=== PATIENT | male | born 2000 | race Caucasian/White ===

== ENCOUNTER 2020-04-30 14:31 | Inpatient (IN) | payer BC, OTHER ==
[2020-04-30] MEDS ORDERED: DIPH,PERTUS(ACELL)TETVAC-LF 0.5 ML VIAL IM ONE (14:42)
[2020-04-30 15:04] LABS: Basophils # (A) 0.1 k/uL (0-0.2); Basophils % (A) 1 %; Eosinophils # (A) 0.1 k/uL (0-0.7); Eosinophils % (A) 1 %; HCT 43.5 % (39.0-53.0); HGB 15.3 gm/dL (13.0-17.5); Lymphocytes # (A) 1.8 k/uL (1.0-4.8); Lymphocytes % (A) 24 %; MCH 31.1 pg (25.0-35.0); MCHC 35.2 g/dL (31.0-37.0); MCV 88.4 fL (80.0-100.0); Mean Platelet Volume 7.9; Monocytes # (A) 0.4 k/uL (0-1.0); Monocytes % (A) 6 %; Neutrophils % (A) 67 %; Platelet Count 194 k/uL (150-450); RBC 4.92 m/uL (4.30-5.90); RDW 12.3 % (11.5-15.5); WBC 7.5 k/uL (4.0-11.0)
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
[2020-04-30 15:18] LABS: ALT 45 U/L (4-49); AST 55 U/L (17-59); African American GFR (CKD) >90 (>60 ml/min/1.73 sqM); Albumin 4.3 g/dL (3.5-5.0); Alcohol <10 mg/dL; Alkaline Phosphatase 78 U/L (38-126); Anion Gap 4 mmol/L; Blood Urea Nitrogen 12 mg/dL (9-20); Calcium 9.3 mg/dL (8.4-10.2); Carbon Dioxide 27 mmol/L (22-30); Chloride 107 mmol/L (98-107); Glucose 116 mg/dL (74-99); Non-African American GFR(CKD) >90 (>60 ml/min/1.73 sqM); Potassium 3.7 mmol/L (3.5-5.1); Sodium 138 mmol/L (137-145); Total Bilirubin 0.8 mg/dL (0.2-1.3); Total Protein 6.9 g/dL (6.3-8.2)
[2020-04-30 15:24] LABS: INR 1.1 (<1.2); Partial Thromboplastin Time 21.6 sec (22.0-30.0); Prothrombin Time 11.6 sec (9.0-12.0)
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
[2020-04-30] MEDS ORDERED: ACETAMINOPHEN TAB 500 MG TAB PO STA (16:38)
[2020-04-30] MEDS ORDERED: ONDANSETRON 4 MG/2 ML VIAL IVP STA (17:24)
[2020-04-30] MEDS ORDERED: LIDOCAINE 1% INJ 10MG/ML (20 ML MDV) SQ ONE (17:45)
[2020-04-30] MEDS ORDERED: SODIUM CHLORIDE 0.9% 1,000 ML IV ONE (17:53)
[2020-04-30] MEDS ORDERED: ONDANSETRON 4 MG/2 ML VIAL IVP PRN (17:54)
[2020-04-30 18:03] LABS: Appearance,Urine Clear (Clear); Bilirubin,Urine Negative (Negative); Blood,Urine Moderate (Negative); Color,Urine Yellow; Glucose,Urine (UA) Negative (Negative); Ketones,Urine Negative (Negative); Leukocyte Esterase,Urine Negative (Negative); Mucus,Urine Rare /hpf; Nitrite,Urine Negative (Negative); Protein,Urine 1+ (Negative); RBC,Urine 57 /hpf (0-5); Squamous Epithelial Cell,Urine <1 /hpf (0-4); Urobilinogen,Urine <2.0 mg/dL (<2.0); WBC,Urine 3 /hpf (0-5)
[2020-04-30 18:07] LABS: Amphetamine Screen,Urine Not Detected (NotDetected); Barbiturate Screen,Urine Not Detected (NotDetected); Benzodiazepines Screen,Urine Not Detected (NotDetected); Cocaine Screen,Urine Not Detected (NotDetected); Methadone Screen, Urine Not Detected (NotDetected); Opiate Screen,Urine Not Detected (NotDetected); Oxycodone Screen, Urine Not Detected (NotDetected); Phencyclidine Screen,Urine Not Detected (NotDetected); Tricyclic Antidepressant,Urine Not Detected (NotDetected); Urn Cannabinoid Scrn Not Detected (NotDetected)
[2020-04-30 18:11] LABS: Specific Gravity,Urine >1.050 (1.001-1.035)
[2020-04-30] MEDS ORDERED: NALOXONE 0.4 MG/ML 1 ML VIAL IV PRN (18:49)
[2020-04-30] MEDS ORDERED: HYDROmorphone 0.5 MG/0.5 ML SYRINGE IVP PRN (18:49)
[2020-04-30] MEDS ORDERED: LACTATED RINGERS 1,000 ML IV ONE (18:49)
[2020-04-30] MEDS ORDERED: traMADol 50 MG TAB PO PRN (18:49)
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
[2020-04-30] MEDS: BACITRACIN OINT 1 EACH PACKET TOPICAL SCH (20:58)
[2020-05-01] MEDS: KETOROLAC 15 MG/ML 1 ML VIAL IVP SCH ×2 (00:54→05:51)
[2020-05-01] MEDS: HEPARIN SODIUM,PORCINE 5,000 UNIT/ML 1 ML VIAL SQ SCH ×2 (00:55→08:38)
[2020-05-01 05:50] VITALS: TEMP 98.7
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
[2020-05-01 08:32] VITALS: BP 107/53; PULSE 77; RESP 14
[2020-05-01] MEDS: BACITRACIN OINT 1 EACH PACKET TOPICAL SCH (08:38)
[2020-05-01] MEDS ORDERED: PANTOPRAZOLE 40 MG/10 ML VIAL IV SCH (09:00)
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
[2020-05-01 11:16] LABS: Basophils % (A) 0 %; Eosinophils % (A) 0 %; HCT 38.6 % (39.0-53.0); HGB 13.3 gm/dL (13.0-17.5); Lymphocytes # (A) 1.6 k/uL (1.0-4.8); Lymphocytes % (A) 21 %; MCH 30.5 pg (25.0-35.0); MCHC 34.4 g/dL (31.0-37.0); MCV 88.7 fL (80.0-100.0); Mean Platelet Volume 8.1; Monocytes # (A) 0.6 k/uL (0-1.0); Monocytes % (A) 8 %; Neutrophils # (A) 5.4 k/uL (1.3-7.7); Neutrophils % (A) 70 %; Platelet Count 183 k/uL (150-450); RBC 4.35 m/uL (4.30-5.90); RDW 12.8 % (11.5-15.5); WBC 7.7 k/uL (4.0-11.0)
[2020-05-01 11:34] LABS: ALT 39 U/L (4-49); AST 44 U/L (17-59); African American GFR (CKD) >90 (>60 ml/min/1.73 sqM); Albumin 3.7 g/dL (3.5-5.0); Alkaline Phosphatase 73 U/L (38-126); Anion Gap 4 mmol/L; Blood Urea Nitrogen 14 mg/dL (9-20); Calcium 8.8 mg/dL (8.4-10.2); Carbon Dioxide 29 mmol/L (22-30); Chloride 104 mmol/L (98-107); Glucose 97 mg/dL (74-99); Non-African American GFR(CKD) >90 (>60 ml/min/1.73 sqM); Sodium 137 mmol/L (137-145); Total Bilirubin 1.1 mg/dL (0.2-1.3)
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
== END 2020-05-01 15:17 | disposition home or self-care (01) | DRG 988 ==
LOC: EC 14:31 → 1SOBS 18:08 → OBSVTOIN 05-01 10:48
PROVIDERS: ADMIT Surgery; ATTEND Surgery
PROC: 0WQ2XZZ Repair Face, External Approach (ICD-10-PCS; principal; 2020-05-01)
DX: S27.321A Contusion of lung, unilateral, initial encounter (principal); S06.0X9A Concussion with loss of consciousness of unspecified duration, initial encounter; K92.0 Hematemesis; S01.81XA Laceration without foreign body of other part of head, initial encounter; S50.311A Abrasion of right elbow, initial encounter; S62.603A Fracture of unspecified phalanx of left middle finger, initial encounter for closed fracture; S80.212A Abrasion, left knee, initial encounter; S80.211A Abrasion, right knee, initial encounter; R31.29 Other microscopic hematuria; M25.511 Pain in right shoulder; Z86.59 Personal history of other mental and behavioral disorders; V43.52XA Car driver injured in collision with other type car in traffic accident, initial encounter; Y92.410 Unspecified street and highway as the place of occurrence of the external cause
CPT/HCPCS: 12011; 36415; 70450; 71045; 71046; 71260; 72125; 72170; 74177; 80053; 80306; 80320; 81001; 84484; 85025; 85610; 85730; 86850; 86900; 86901; 90471; 90715; 93005; 96361; 96374; 99291

== ENCOUNTER 2021-08-03 00:05 | Emergency (ER) | payer BC, OTHER ==
[2021-08-03 00:18] VITALS: RESP 16; TEMP 98.1
[2021-08-03] MEDS ORDERED: PROPARACAINE 0.5% OPHTH DROPS 15 ML BTL RIGHT EYE STA (01:27)
[2021-08-03] MEDS ORDERED: LACTATED RINGERS 1,000 ML IV SCH (01:45)
--- NOTE | 2021-08-03 01:51 | ED ---
Eye Problem HPI - General Chief complaint: Eye Problems Stated complaint: Work injury, santizer in eye Time Seen by Provider: 08/03/21 01:13 Source: patient Mode of arrival: ambulatory Limitations: no limitations - History of Present Illness Initial comments: Patient is a 21-year-old male presenting with chief complaint of eye irritation. 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 He immediately flushed the eye with the eye wash at work and stated that he did so for a total of 45 minutes. Patient states that now he only feels mild irritation and soreness, but wanted to ensure there were no major issues with the eye. He admits to some redness. He denies vision changes, foreign body sensation, pain or difficulty with eye movement, sensitivity to light, headache, nausea, vomiting, excessive tearing, discharge, swelling. MD chief complaint: eye pain - Related Data Previous Rx's Medication Instructions Recorded Erythromycin Ophth Oint [Romycin 1 applic RIGHT EYE QID 5 Days #3.5 08/03/21 Ophth Oint] gm Allergies Allergy/AdvReac Type Severity Reaction Status Date / Time No Known Allergies Allergy Verified 08/03/21 00:19 Review of Systems ROS Statement: Those systems with pertinent positive or pertinent negative responses have been documented in the HPI. ROS Other: All systems not noted in ROS Statement are negative. Past Medical History Past Medical History: No Reported History History of Any Multi-Drug Resistant Organisms: None Reported Past Surgical History: No Surgical Hx Reported Past Anesthesia/Blood Transfusion Reactions: No Reported Reaction Past Psychological History: No Psychological Hx Reported Smoking Status: Vaper Past Alcohol Use History: None Reported Past Drug Use History: None Reported General Exam Limitations: no limitations Head exam: Present: atraumatic, normocephalic, normal inspection Eye exam: Present: PERRL, EOMI, conjunctival injection. Absent: periorbital swelling, periorbital tenderness Pupils: Present: normal accommodation Expanded Eyelids: Normal Inspection: Bilateral Pupils: Regular, Round: Bilateral, Reactive: Bilateral Sclera/Conjunctival: Injection: Right Neurological exam: Present: alert, oriented X3, CN II-XII intact Psychiatric exam: Present: normal affect, normal mood Skin exam: Present: warm, dry, intact, normal color. Absent: rash Course Vital Signs 08/03/21 00:08 Temperature 98.1 F Pulse Rate 63 Respiratory 16 Rate Blood Pressure 136/83 O2 Sat by Pulse 97 Oximetry Medical Decision Making - Medical Decision Making Patient is a 21-year-old male presenting with chief complaint of eye irritation. 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 Patient rinsed his eye in the eye wash at work for what he states was 45 minutes. On exam extraocular movements were intact pupils were equal round reactive to light and accommodating. No discharge noted from the eye. I applied 1 proparacaine drop and checked the pH which appeared to be about 7.5. A Yogesh lens was placed on the right eye and the eye was flushed with 1 L of lactated Ringer's. PH when rechecked was 7. No notable corneal abrasion noted on examination with Wood's lamp. Educated patient on alarms seconds. Prescribed patient erythromycin ophthalmic ointment, apply every 6 hours for 5 days. Follow-up with ophthalmology if needed. Follow up with PCP in one week. Answered all questions. Report back to ER with worsening symptoms or new onset alarming symptoms. Patient conveyed verbal understanding and agreed to the plan. I discussed this case with my attending Dr. Mason. Disposition Clinical Impression: Chemical exposure of eye Disposition: HOME SELF-CARE Condition: Good Instructions (If sedation given, give patient instructions): Eye Wash (Into the eye), Eye Foreign Body (ED), Eye Pain (ED) Additional Instructions: Apply antibiotic ointment inside of the lower eyelid and blink to spread across surface of the eye every 6 hours. Ointment may create bluriness momentarily. Follow up with ophthalmology in one to 2 days if needed. Follow-up with PCP in one week. Report back to ER with worsening symptoms or new onset alarming symptoms, including but not limited to vision changes or vision loss, eye pain, eye discharge, swelling of the eye, increased redness of the eye, foreign body sensation. Prescriptions: Erythromycin Ophth Oint [Romycin Ophth Oint] 1 applic RIGHT EYE QID 5 Days #3.5 gm Is patient prescribed a controlled substance at d/c from ED?: No Referrals: None,Stated [Primary Care Provider] - 1-2 days Nelly Montana MD [STAFF PHYSICIAN] - 1-2 days Time of Disposition: 02:37
[2021-08-03 03:17] VITALS: BP 126/72; PULSE 78
== END 2021-08-03 03:16 | disposition home or self-care (01) ==
LOC: EC 00:05
DX: Z77.098 Contact with and (suspected) exposure to other hazardous, chiefly nonmedicinal, chemicals (principal); F17.290 Nicotine dependence, other tobacco product, uncomplicated
CPT/HCPCS: 99283